=== PATIENT | male | born 1945 | race Caucasian/White ===

== ENCOUNTER → 2016-07-08 | Outpatient (CLI) | payer MEDICARE, BC, OTHER ==
[~2016-07-08] MED LIST: ACTIFED COLD &1 TA1 PO; AMARYL4 MG PO; ASPIRIN 32325 MG/TAB PO; CALCIUM CITRAT200 MG PO; CITRACAL + D CA1 TAB PO; CLARITIN10 MG PO; FLONASE NASAL S16 GM NS; LORTAB 7.5/5001 TAB PO; MELATONIN; METFORMIN HCL500 M1 PO; MIRAPEX 1MG; MIRAPEX0.5 MG PO; MULTIPLE VITAMI1 CAP PO; NIACIN500 M3 PO; PERCOCET 325 MG1 TA2 PO; PRILOSEC 20MG20 MG PO; PROTONIX 40MG T40 MG PO; VICTOZA6 MG/ML SC
[2016-07-08 09:00] LABS: BASO # 0.1 (0.0-0.2); BASO % 0.8 % (0.0-2.0); EOS # 0.3 (0.0-0.7); EOS % 5.1 % (0-4.0); GRAN # 4.1 (1.4-6.5); GRAN % 64.4 % (42.2-75.2); HEMATOCRIT 48.6 % (42.0-52.0); HEMOGLOBIN 16.9 g/dl (13.5-18.0); LYMPH # 1.4 (1.2-3.4); LYMPH % 21.9 % (20.0-51.0); MEAN CELL VOLUME 88 fl (80.0-100.0); MEAN CORPUSCULAR HEMOGLOBIN 31 pg (27.0-31.0); MEAN CORPUSCULAR HGB CONC 35 g/dl (33.0-37.0); MEAN PLATELET VOLUME 9.8 fl (7.4-10.4); MONO # 0.5 (0.1-0.6); MONO % 7.2 % (1.7-9.3); PLATELET COUNT 197 K/mm3 (130-400); RED BLOOD COUNT 5.53 M/mm3 (4.20-5.60); REDCELL DISTRIBUTION WIDTH-CV 12.8 % (11.5-14.5); WHITE BLOOD COUNT 6.3 K/mm3 (4.8-10.8)
[2016-07-08 09:22] LABS: ADJUSTED CALCIUM 10.1 mg/dL (8.4-10.2); ALBUMIN 4.3 gm/dL (3.5-5.0); BILIRUBIN,TOTAL 0.6 mg/dL (0.0-1.0); CALCIUM 10.3 mg/dL (8.4-10.2); CREATININE, serum 0.79 mg/dL (0.66-1.25); POTASSIUM 4.3 mmol/L (3.4-5.0)
[2016-07-08 09:43] LABS: THYROID STIMULATING HORMONE 0.743 uIU/mL (0.465-4.680)
== END ==
LOC: COL.LAB 08:28
PROVIDERS: Internal Medicine
DX: E11.9 Type 2 diabetes mellitus without complications (principal); E78.2 Mixed hyperlipidemia; E23.0 Hypopituitarism

== ENCOUNTER → 2016-08-01 | Outpatient (CLI) | payer MEDICARE, BC, OTHER | LOC: COL.RAD 07:30 | DX: M51.26 Other intervertebral disc displacement, lumbar region (principal); R26.81 Unsteadiness on feet ==

== ENCOUNTER → 2016-10-02 | Outpatient (CLI) | payer MEDICARE, BC, OTHER ==
[2016-10-02 14:34] LABS: BASO % 0.7 % (0.0-2.0); EOS # 0.3 (0.0-0.7); EOS % 4.4 % (0-4.0); GRAN # 4.1 (1.4-6.5); GRAN % 67.3 % (42.2-75.2); HEMOGLOBIN 15.9 g/dl (13.5-18.0); LYMPH # 1.2 (1.2-3.4); LYMPH % 19.1 % (20.0-51.0); MEAN CELL VOLUME 89 fl (80.0-100.0); MEAN CORPUSCULAR HEMOGLOBIN 31 pg (27.0-31.0); MEAN CORPUSCULAR HGB CONC 35 g/dl (33.0-37.0); MEAN PLATELET VOLUME 9.9 fl (7.4-10.4); MONO # 0.5 (0.1-0.6); PLATELET COUNT 192 K/mm3 (130-400); REDCELL DISTRIBUTION WIDTH-CV 12.6 % (11.5-14.5); WHITE BLOOD COUNT 6.1 K/mm3 (4.8-10.8)
[2016-10-02 14:44] LABS: ADJUSTED CALCIUM 10.4 mg/dL (8.4-10.2); BILIRUBIN,TOTAL 0.6 mg/dL (0.0-1.0); CALCIUM 10.4 mg/dL (8.4-10.2); CREATININE, serum 0.81 mg/dL (0.66-1.25); POTASSIUM 3.9 mmol/L (3.4-5.0); TOTAL PROTEIN 6.6 gm/dL (6.4-8.2)
== END ==
LOC: COL.LAB 13:42
PROVIDERS: Internal Medicine
DX: E11.9 Type 2 diabetes mellitus without complications (principal); E23.0 Hypopituitarism; I10 Essential (primary) hypertension; E78.5 Hyperlipidemia, unspecified

== ENCOUNTER → 2017-02-28 | Outpatient (REF) ==
[2017-02-28 16:53] LABS: THYROID STIMULATING HORMONE 0.789 uIU/mL (0.465-4.680)
== END ==
LOC: ZLAB.WCH 14:55
PROVIDERS: Internal Medicine
DX: Z01.89 Encounter for other specified special examinations (principal)

== ENCOUNTER → 2017-06-23 | Outpatient (REF) | LOC: ZLAB.WCH 18:06 | DX: Z01.89 Encounter for other specified special examinations (principal) ==

== ENCOUNTER 2017-07-09 12:51 | Day surgery (SDC) | payer MEDICARE, BC, OTHER ==
[~2017-07-09] VITALS: Ht 177.8 cm; Wt 100.5 kg
[~2017-07-09 12:51] MED LIST changes: -ACTIFED COLD &1 TA1 PO; +ACTIFED PO; +CLARITIN 1010 MG/TAB PO; -CLARITIN10 MG PO; -FLONASE NASAL S16 GM NS; +FLONASEALLERGY NS; -LORTAB 7.5/5001 TAB PO; +NORCO 325 MG-51 TAB PO
[2017-07-09] MEDS ORDERED: CANA100T PO (13:24)
[2017-07-09] MEDS ORDERED: BASAGLAR K100 UNIT/1 SQ (13:28)
[2017-07-09] MEDS ORDERED: CALTRATE-600 W600 MG PO (13:29)
[2017-07-09 13:53] VITALS: BP 127/72; PULSE 76; TEMP 97.2
[2017-07-09 17:53] VITALS: BP 139/76; PULSE 65; TEMP 98
== END 2017-07-09 19:28 | disposition home or self-care (01) ==
LOC: SDCO 12:51 → SURG 17:45 → SDCO 19:28
DX: N32.0 Bladder-neck obstruction (principal); Z97.8 Presence of other specified devices; Z96.643 Presence of artificial hip joint, bilateral; Z85.46 Personal history of malignant neoplasm of prostate; Z90.79 Acquired absence of other genital organ(s); Z87.891 Personal history of nicotine dependence; K21.9 Gastro-esophageal reflux disease without esophagitis; E11.40 Type 2 diabetes mellitus with diabetic neuropathy, unspecified; Z79.4 Long term (current) use of insulin; E29.1 Testicular hypofunction; G47.30 Sleep apnea, unspecified; Z79.82 Long term (current) use of aspirin; G25.81 Restless legs syndrome; I10 Essential (primary) hypertension; E78.5 Hyperlipidemia, unspecified; Z80.0 Family history of malignant neoplasm of digestive organs; Z68.31 Body mass index [BMI] 31.0-31.9, adult; J45.909 Unspecified asthma, uncomplicated
CPT/HCPCS: OP; J0690; J2270; J2405; J2704; J3010; J3301; J7030

== ENCOUNTER → 2017-09-23 | Outpatient (REF) ==
[~2017-09-23] MED LIST changes: +BASAGLAR K100 UNIT/1 SQ; +CALTRATE-600 W600 MG PO; +CANA100T PO
[2017-09-23 15:33] LABS: C-REACTIVE PROTEIN 0.8 mg/dL (0.0-0.9)
[2017-09-23 16:02] LABS: THYROID STIMULATING HORMONE 0.851 uIU/mL (0.465-4.680)
== END ==
LOC: ZLAB.WCH 15:03
PROVIDERS: Internal Medicine
DX: Z01.89 Encounter for other specified special examinations (principal)

== ENCOUNTER 2017-11-14 05:21 | Day surgery (SDC) | payer MEDICARE, BC, OTHER ==
[~2017-11-14] VITALS: Ht 177.8 cm; Wt 102.1 kg
[2017-11-14] MEDS ORDERED: CALCIUM CARBON650 M2 PO (05:38)
[2017-11-14] MEDS ORDERED: ACTIFED PO (05:40)
[2017-11-14] MEDS ORDERED: PERCOCET 325 MG1 TA2 PO (05:41)
[2017-11-14] MEDS ORDERED: MOBIC15 MG PO (05:41)
[2017-11-14] MEDS ORDERED: AMARYL4 MG PO (05:43)
[2017-11-14 05:46] VITALS: BP 129/81; PULSE 60; TEMP 98.1
[2017-11-14 08:25] VITALS: BP 132/70; PULSE 54; TEMP 97.3
[2017-11-14 08:40] VITALS: BP 125/76; PULSE 56
[2017-11-14 08:55] VITALS: BP 123/72; PULSE 59
[2017-11-14 09:10] VITALS: BP 124/68; PULSE 56
[2017-11-14 09:24] VITALS: BP 132/70; PULSE 57; TEMP 97.3
== END 2017-11-14 09:30 | disposition home or self-care (01) ==
LOC: SDCO 05:21
DX: N32.0 Bladder-neck obstruction (principal); J45.909 Unspecified asthma, uncomplicated; E78.5 Hyperlipidemia, unspecified; E11.40 Type 2 diabetes mellitus with diabetic neuropathy, unspecified; I10 Essential (primary) hypertension; G25.81 Restless legs syndrome; G47.33 Obstructive sleep apnea (adult) (pediatric); M19.90 Unspecified osteoarthritis, unspecified site; K21.9 Gastro-esophageal reflux disease without esophagitis; Z79.82 Long term (current) use of aspirin; Z79.4 Long term (current) use of insulin; Z90.79 Acquired absence of other genital organ(s); Z96.643 Presence of artificial hip joint, bilateral; Z87.891 Personal history of nicotine dependence; Z85.46 Personal history of malignant neoplasm of prostate; Z80.0 Family history of malignant neoplasm of digestive organs; Z83.3 Family history of diabetes mellitus; Z81.8 Family history of other mental and behavioral disorders
CPT/HCPCS: J0690; J2405; J2704; J3010; J3301; J7030

== ENCOUNTER → 2017-12-26 | Outpatient (REF) ==
[~2017-12-26] MED LIST changes: +CALCIUM CARBON650 M2 PO; +MOBIC15 MG PO
== END ==
LOC: ZLAB.WCH 09:46
DX: Z01.89 Encounter for other specified special examinations (principal)

== ENCOUNTER → 2019-01-13 | Outpatient (CLI) | payer MEDICARE, BC, OTHER | LOC: COL.RAD 06:53 | DX: M47.816 Spondylosis without myelopathy or radiculopathy, lumbar region (principal); M43.16 Spondylolisthesis, lumbar region; M48.061 Spinal stenosis, lumbar region without neurogenic claudication; M62.58 Muscle wasting and atrophy, not elsewhere classified, other site; M19.90 Unspecified osteoarthritis, unspecified site ==

== ENCOUNTER → 2019-02-02 | Outpatient (CLI) | payer MEDICARE, BC, OTHER | LOC: MHCPAIN 08:17 | DX: G89.29 Other chronic pain (principal); M47.817 Spondylosis without myelopathy or radiculopathy, lumbosacral region; M54.16 Radiculopathy, lumbar region; M53.3 Sacrococcygeal disorders, not elsewhere classified; M48.061 Spinal stenosis, lumbar region without neurogenic claudication | CPT/HCPCS: G0463 ==

== ENCOUNTER → 2021-04-03 | Outpatient (CLI) | payer MEDICARE, BC | LOC: MHCPAIN 10:11 | DX: M47.816 Spondylosis without myelopathy or radiculopathy, lumbar region (principal); M53.3 Sacrococcygeal disorders, not elsewhere classified; M54.50 Low back pain, unspecified; F17.210 Nicotine dependence, cigarettes, uncomplicated | CPT/HCPCS: G0463 ==

== ENCOUNTER 2021-08-14 18:57 | Emergency (ER) | payer MEDICARE, BC ==
[2021-08-14 19:14] VITALS: TEMP 98.7
[2021-08-14 19:37] LABS: BASO # 0.1 K/mm3 (0.0-0.2); BASO % 0.5 % (0.0-2.0); EOS # 0.4 K/mm3 (0.0-0.7); EOS % 3.8 % (0.0-4.0); GRAN # 7.8 K/mm3 (1.4-6.5); HEMATOCRIT 43.3 % (42.0-52.0); HEMOGLOBIN 15.3 g/dl (13.5-18.0); LYMPH # 1.6 K/mm3 (1.2-3.4); LYMPH % 15.1 % (20.0-51.0); MEAN CELL VOLUME 89 fl (80.0-100.0); MEAN CORPUSCULAR HEMOGLOBIN 32 pg (27-31); MEAN CORPUSCULAR HGB CONC 35 g/dl (33.0-37.0); MEAN PLATELET VOLUME 9.9 fl (7.4-10.4); MONO # 0.8 K/mm3 (0.1-0.6); MONO % 7.1 % (1.7-9.3); PLATELET COUNT 181 K/mm3 (130-400); RED BLOOD COUNT 4.86 M/mm3 (4.20-5.60); REDCELL DISTRIBUTION WIDTH-CV 12.7 % (11.5-14.5)
[2021-08-14 19:46] LABS: INR 1.1 (0.8-3.0)
[2021-08-14] MEDS ORDERED: KAPSPARGO SPRIN50 MG PO (19:51)
[2021-08-14] MEDS ORDERED: OZOBAX5 MG/5 ML PO (19:54)
[2021-08-14] MEDS ORDERED: LASIX 20MG TABL20 MG PO (19:54)
[2021-08-14] MEDS ORDERED: NAPROSYN500 MG PO (19:56)
[2021-08-14 19:57] LABS: ALANINE AMINOTRANSFERASE 17 U/L (0-55); ALBUMIN 3.6 gm/dL (3.4-4.8); ALKALINE PHOSPHATASE 75 U/L (40-150); ANION GAP 8 mmol/L (7-16); AST,SGOT 14 U/L (5-34); BILIRUBIN,TOTAL 0.6 mg/dL (0.2-1.2); BLOOD UREA NITROGEN 13 mg/dL (8-26); CALCIUM 9.4 mg/dL (8.4-10.2); CARBON DIOXIDE 24 mmol/L (23-31); CHLORIDE 108 mmol/L (98-107); CREATININE, serum 0.76 mg/dL (0.72-1.25); GLUCOSE 146 mg/dL (70-99); POTASSIUM 4.2 mmol/L (3.5-4.5); SODIUM 140 mmol/L (136-145); TOTAL PROTEIN 6.2 gm/dL (6.2-8.1)
[2021-08-14] MEDS ORDERED: VESICARE10 MG PO (19:57)
[2021-08-14] MEDS ORDERED: NORCO 325 MG-7.1 TAB PO (19:58)
[2021-08-14 20:25] LABS: PROLACTIN < 0.60 ng/mL (3.46-19.40)
[2021-08-14 22:58] VITALS: BP 149/75; PULSE 63
== END 2021-08-14 23:11 | disposition short-term general hospital (02) ==
LOC: COL.ER 18:57
PROVIDERS: Family Medicine
DX: I63.9 Cerebral infarction, unspecified (principal); F17.210 Nicotine dependence, cigarettes, uncomplicated; Z20.822 Contact with and (suspected) exposure to COVID-19
CPT/HCPCS: J3101; J7050; Q9967

== ENCOUNTER 2021-09-24 12:25 | Inpatient (IN) | payer MEDICARE, OTHER, BC ==
[~2021-09-24] VITALS: Ht 177.8 cm; Wt 90.3 kg
[~2021-09-24 12:25] MED LIST changes: +KAPSPARGO SPRIN50 MG PO; +LASIX 20MG TABL20 MG PO; +NAPROSYN500 MG PO; +NORCO 325 MG-7.1 TAB PO; +OZOBAX5 MG/5 ML PO; +VESICARE10 MG PO
[2021-09-24 13:12] LABS: BASO # 0.1 K/mm3 (0.0-0.2); BASO % 0.5 % (0.0-2.0); EOS # 0.1 K/mm3 (0.0-0.7); EOS % 1.5 % (0.0-4.0); GRAN # 7.6 K/mm3 (1.4-6.5); GRAN % 82.4 % (42.2-75.2); HEMATOCRIT 41.9 % (42.0-52.0); HEMOGLOBIN 14.9 g/dl (13.5-18.0); LYMPH # 0.8 K/mm3 (1.2-3.4); LYMPH % 9.1 % (20.0-51.0); MEAN CELL VOLUME 88 fl (80.0-100.0); MEAN CORPUSCULAR HEMOGLOBIN 31 pg (27-31); MEAN CORPUSCULAR HGB CONC 36 g/dl (33.0-37.0); MEAN PLATELET VOLUME 11.2 fl (7.4-10.4); MONO # 0.6 K/mm3 (0.1-0.6); MONO % 6.1 % (1.7-9.3); PLATELET COUNT 184 K/mm3 (130-400); RED BLOOD COUNT 4.79 M/mm3 (4.20-5.60); REDCELL DISTRIBUTION WIDTH-CV 11.9 % (11.5-14.5)
[2021-09-24 13:27] LABS: ALBUMIN 3.9 gm/dL (3.4-4.8); BILIRUBIN,TOTAL 0.9 mg/dL (0.2-1.2); CALCIUM 9.7 mg/dL (8.4-10.2); CREATININE, serum 2.3 mg/dL (0.72-1.25); POTASSIUM 4.6 mmol/L (3.5-4.5); TOTAL PROTEIN 6.4 gm/dL (6.2-8.1)
[2021-09-24 13:33] LABS: COLLECTION METHOD CLEAN CATCH
[2021-09-24 13:47] LABS: MUCOUS Present (NOT PRESENT); PH 5 (5-8); SQUAMOUS EPITHELIAL None Seen /hpf (0-10); URINE APPEARANCE Clear (CLEAR/HAZY); URINE BACTERIA None Seen /hpf (NONE SEEN); URINE BILIRUBIN Negative (NEGATIVE); URINE BLOOD 1+ (NEGATIVE); URINE COLOR Yellow (YELLOW); URINE GLUCOSE 3+ (NEGATIVE); URINE KETONE 1+ (NEGATIVE); URINE LEUKOCYTE ESTERASE Negative (NEGATIVE); URINE NITRATE Negative (NEGATIVE); URINE PROTEIN(semi-quant) Negative (NEGATIVE); URINE RBC 0-2 /hpf (0-2); URINE UROBILINOGEN Negative (NEGATIVE)
--- NOTE | 2021-09-24 16:45 | NUR ---
THE PATIENT WAS BROUGHT TO THE FLOOR BY BASSEM JOHNSON FROM ED. THE PATIENT TRANSFERRED FROM ED STRETCHER TO PT ROOM BED BY SHIFTING FROM ONE TO THE OTHER. ON ADMIT TO THE FLOOR, THE PATIENT'S BLOOD SUGAR WAS CHECKED, IT WAS 323. CONTACTED DR. ROBERSON WHO ORDERED 5 UNITS NovoLIN IV PUSH AND A RECHECK AT 1800. WAITING FOR THE INSULIN TO BE VERIFIED BY PHARMACY AT THIS TIME.
[2021-09-24 19:02] LABS: CALCIUM 9.4 mg/dL (8.4-10.2); CREATININE, serum 1.92 mg/dL (0.72-1.25); POTASSIUM 3.8 mmol/L (3.5-4.5)
[2021-09-24 20:40] LABS: PHOSPHOROUS 3.1 mg/dL (2.3-4.7); POTASSIUM 3.8 mmol/L (3.5-4.5)
[2021-09-24 21:10] VITALS: BP 122/64; PULSE 58; TEMP 98
[2021-09-24] MEDS ORDERED: TRULICITY1.5 MG/0.5 SQ (21:11)
[2021-09-24] MEDS ORDERED: ASPIRIN E.C. 8181 MG PO (21:11)
[2021-09-24] MEDS ORDERED: GLUCOPHAGE1000 MG PO (21:11)
[2021-09-24] MEDS ORDERED: NORVASC 5MG5 MG/TAB PO (21:13)
[2021-09-24] MEDS ORDERED: LIPITOR 40MG TA40 MG PO (21:13)
[2021-09-24] MEDS ORDERED: PLAVIX 75MG TAB75 MG PO (21:13)
--- NOTE | 2021-09-24 22:35 | NUR ---
At beginning of shift, reported that patient's lab work has come back better, and PA decided that patient did not need to be transferred to ICU, and that patiet could stay on medical floor instead. Assessment completed around 2114. Competed admission paperwork to best of patient's ability. Patient drowsy, but awakens easily. Denies pain and discomfort. Patient soft spoken. Able to answer orientation quesitons without difficulty, but has difficulty answering some questions about past. Peripheral IV to left hand with IV fluids running per orders. Denies SOB and dyspnea. LS CTA. HRR. Telemetry in place. BSAx4. Abdomen soft and non-tender. Discoloration to BLE, dry. Patient voices no questions, needs, or concerns at this time. In bed with call light within reach. Bed alarm on.
[2021-09-25] VITALS (7 sets, daily range): BP systolic 109–150; BP diastolic 73–90; PULSE 57–73; TEMP 97.4–98.3
[2021-09-25 06:13] LABS: BASO # 0.1 K/mm3 (0.0-0.2); BASO % 0.8 % (0.0-2.0); EOS # 0.4 K/mm3 (0.0-0.7); EOS % 5.3 % (0.0-4.0); GRAN # 5.2 K/mm3 (1.4-6.5); GRAN % 66.2 % (42.2-75.2); HEMATOCRIT 38.6 % (42.0-52.0); HEMOGLOBIN 13.5 g/dl (13.5-18.0); LYMPH # 1.5 K/mm3 (1.2-3.4); LYMPH % 18.7 % (20.0-51.0); MEAN CELL VOLUME 89 fl (80.0-100.0); MEAN CORPUSCULAR HEMOGLOBIN 31 pg (27-31); MEAN CORPUSCULAR HGB CONC 35 g/dl (33.0-37.0); MEAN PLATELET VOLUME 11.2 fl (7.4-10.4); MONO # 0.7 K/mm3 (0.1-0.6); MONO % 8.7 % (1.7-9.3); PLATELET COUNT 159 K/mm3 (130-400); RED BLOOD COUNT 4.36 M/mm3 (4.20-5.60); REDCELL DISTRIBUTION WIDTH-CV 11.9 % (11.5-14.5)
[2021-09-25 06:36] LABS: ALBUMIN 3.3 gm/dL (3.4-4.8); CALCIUM 9.3 mg/dL (8.4-10.2); CREATININE, serum 1.44 mg/dL (0.72-1.25); MAGNESIUM 1.9 mg/dL (1.6-2.6); PHOSPHOROUS 2.3 mg/dL (2.3-4.7); POTASSIUM 3.7 mmol/L (3.5-4.5)
[2021-09-25 11:09] LABS: CHOLESTEROL RISK RATIO 6.8
[2021-09-25 11:30] LABS: TSH w REFLEX 0.407 uIU/mL (0.350-4.940)
--- NOTE | 2021-09-25 12:52 | NUR ---
Initial visit; Patient thanked Certified Respiratory Therapist for looking in on him and offering God's blessings.
--- NOTE | 2021-09-25 16:49 | NUR ---
Music Teacher contacted patient's , Ritu to discuss discharge planning as patient is confused. Patient lives in [place] with his and sees Dr. Tineo for primary care. Patient obtains medications from [facility] pharmacy with no difficulties. Ritu advised before his stroke, patient did not use DME and was independent with ADLS. Ritu reported that patient has had great difficulty recently. Ritu advised she does not know if patient has DPOA-HC as patient handled all the paperwork. SW discussed recommendation for post acute rehab and options for SNF locally. Ritu would like referrals sent to the three local SNFs: [facility], [facility], and [facility]. SW then contacted patient's son, Rodriguez and reviewed referrals that were sent. Rodriguez advised he has been in contact with both [facility] and [facility]. Rodriguez advised he is looking into [place] for both patient and Ritu and that [facility] had a two bedroom available. Discharge Plan: SNF, pending referrals at [facility], [facility], and [facility]
--- NOTE | 2021-09-25 22:00 | NUR ---
Patient is resting in bed, alert and oriented. VSS. Telemetry in place NSR. Assessment completed. Medications provided. No other needs at this time. Call light within reach.
[2021-09-26 04:40] VITALS: BP 104/71; PULSE 70; TEMP 97.7
--- NOTE | 2021-09-26 06:12 | NUR ---
Patient has been resting most of the night. Continue receiving fluids. VSS. Report will be given to day RN.
[2021-09-26 06:42] LABS: BASO % 0.3 % (0.0-2.0); EOS # 0.3 K/mm3 (0.0-0.7); EOS % 5.7 % (0.0-4.0); GRAN # 3.8 K/mm3 (1.4-6.5); GRAN % 62.8 % (42.2-75.2); HEMOGLOBIN 12.9 g/dl (13.5-18.0); LYMPH # 1.3 K/mm3 (1.2-3.4); LYMPH % 21.2 % (20.0-51.0); MEAN CELL VOLUME 89 fl (80.0-100.0); MEAN CORPUSCULAR HEMOGLOBIN 31 pg (27-31); MEAN CORPUSCULAR HGB CONC 35 g/dl (33.0-37.0); MEAN PLATELET VOLUME 11.5 fl (7.4-10.4); MONO # 0.6 K/mm3 (0.1-0.6); MONO % 9.3 % (1.7-9.3); PLATELET COUNT 143 K/mm3 (130-400); RED BLOOD COUNT 4.11 M/mm3 (4.20-5.60)
[2021-09-26 06:48] LABS: HEMATOCRIT 36.5 % (42.0-52.0)
[2021-09-26 07:10] LABS: CALCIUM 8.6 mg/dL (8.4-10.2); MAGNESIUM 1.7 mg/dL (1.6-2.6); PHOSPHOROUS 2.8 mg/dL (2.3-4.7)
[2021-09-26 07:11] LABS: POTASSIUM 2.8 mmol/L (3.5-4.5)
[2021-09-26 07:49] VITALS: BP 119/69; PULSE 63; TEMP 97.8
--- NOTE | 2021-09-26 09:48 | NUR ---
ASSOCIATE PROFESSOR OF AUTOMATION NURSE SHLOMO AT BEDSIDE ASKING QUESTIONS OF THE PATIENT. THE PATIENT IS UNABLE TO ANSWER MANY QUESTIONS. HE IS INTERMITTENTLY ORIENTED, BUT IS ALERT MOST OF THE TIME. NO OTHER CONCERNS. PLANS FOR ARSH AND LOOP PLACEMENT LATER THIS MORNING.
--- NOTE | 2021-09-26 11:00 | NUR ---
THE PATIENT IS SITTING IN THE RECLINER AT THIS TIME. HOWEVER, HAS REQUESTED TO RETURN TO BED. MOVED PATIENT INTO BED, AND IS WAITING FOR HIS ARSH/LOOP RECORDER PLACEMENT AROUND 1130. NO OTHER CONCERNS AT THIS TIME.
[2021-09-26 11:33] VITALS: BP 120/73; PULSE 66; TEMP 97.7
--- NOTE | 2021-09-26 14:58 | NUR ---
Social Work student faxed clinical updates to Davin at [facility].
--- NOTE | 2021-09-26 15:05 | NUR ---
Jozef with [facility] notified ESTHER Carreno of acceptance for tomorrow. Contacted [facility] and spoke with Pratibha who confirms of acceptace to their facility tomorrow.
[2021-09-26 16:10] VITALS: BP 123/79; PULSE 69; TEMP 98
[2021-09-26 20:17] VITALS: BP 113/70; PULSE 69; TEMP 97.7
--- NOTE | 2021-09-26 21:30 | NUR ---
Patient is resting in bed, alert and partially oriented. Denies pain. Telemetry in place, NSR. Receiving 1/2 NS AT 50 ml/hr. Assessment completed, medications provided. No other needs at this time. Call light within reach, bed alarm on.
[2021-09-26 23:54] VITALS: BP 110/62; PULSE 70; TEMP 97.9
[2021-09-27 04:29] VITALS: BP 118/71; PULSE 68; TEMP 98.4
--- NOTE | 2021-09-27 06:08 | NUR ---
Patient has had a calm night. All needs met. Continue receiving 1/2 NS AT 50ml/hr. Report will be given to day RN.
[2021-09-27 06:39] LABS: BASO % 0.6 % (0.0-2.0); EOS # 0.2 K/mm3 (0.0-0.7); EOS % 4.5 % (0.0-4.0); GRAN # 3.3 K/mm3 (1.4-6.5); GRAN % 65.2 % (42.2-75.2); HEMOGLOBIN 12.5 g/dl (13.5-18.0); LYMPH % 18.8 % (20.0-51.0); MEAN CELL VOLUME 86 fl (80.0-100.0); MEAN CORPUSCULAR HEMOGLOBIN 31 pg (27-31); MEAN CORPUSCULAR HGB CONC 36 g/dl (33.0-37.0); MEAN PLATELET VOLUME 11.8 fl (7.4-10.4); MONO # 0.5 K/mm3 (0.1-0.6); MONO % 10.5 % (1.7-9.3); PLATELET COUNT 124 K/mm3 (130-400); RED BLOOD COUNT 4.05 M/mm3 (4.20-5.60); REDCELL DISTRIBUTION WIDTH-CV 11.9 % (11.5-14.5)
[2021-09-27 06:58] LABS: ALBUMIN 2.9 gm/dL (3.4-4.8); CALCIUM 8.4 mg/dL (8.4-10.2); CREATININE, serum 1.09 mg/dL (0.72-1.25); MAGNESIUM 1.7 mg/dL (1.6-2.6); PHOSPHOROUS 1.8 mg/dL (2.3-4.7); POTASSIUM 3.5 mmol/L (3.5-4.5)
[2021-09-27 07:33] VITALS: BP 110/67; PULSE 64; TEMP 97.9
--- NOTE | 2021-09-27 10:47 | NUR ---
Scheduled medications given. Shift assessment performed. VSS. Patient alert but only partially oriented. PICC line in place, flushes with good blood return, no signs of complications. Aphasia noted. Patient denies any pain, discomfort, SOA, or further needs at this time. Call light in reach. Fall percautions in place.
--- NOTE | 2021-09-27 10:59 | NUR ---
Order for Magensium Sulfate replacement placed, per additional nursing order. K+ replacement in progress per protocol.
[2021-09-27] MEDS ORDERED: LIPITOR 40MG TA40 MG PO (11:23)
[2021-09-27] MEDS ORDERED: PLAVIX 75MG TAB75 MG PO (11:23)
[2021-09-27] MEDS ORDERED: ASPIRIN E.C. 8181 MG PO (11:24)
[2021-09-27] MEDS ORDERED: GLUCOPHAGE1000 MG PO (11:27)
[2021-09-27] MEDS ORDERED: TRULICITY1.5 MG/0.5 SQ (11:27)
[2021-09-27] MEDS ORDERED: AMARYL4 MG PO (11:27)
[2021-09-27] MEDS ORDERED: NOVOLOG 100U100 U/M1 SQ (11:27)
[2021-09-27 11:28] VITALS: BP 125/76; PULSE 68; TEMP 97.7
--- NOTE | 2021-09-27 12:50 | NUR ---
Jessica notified by Davin at [facility] that they are able to accept this patient and transportation can be here around 1430 to pick the patient up. Patients clinical updates and discharge orders faxed to Davin. Patients RN and PA notified. Gilbert andrea requested. Attempt made to contact the patients Ritu gooden on her cell phone and home phone. Phone call made to the patients son Rodriguez and message left with the above information. Discharge plan: [facility] SNF @ 1430
[2021-09-27 13:40] VITALS: BP 125/76; PULSE 68; TEMP 97.7
--- NOTE | 2021-09-27 15:09 | NUR ---
Patient deemed fit for discharge. Report called to [facility]. VSS. Patient Alert and partially oriented.
--- NOTE | 2021-09-27 15:19 | NUR ---
Report given to at [facility]
== END 2021-09-27 14:45 | DRG 981 ==
LOC: COL.ER 12:25 → MEDICAL 15:03
PROVIDERS: Personal Emergency Response Attendant; Physician Assistant; Student in an Organized Health Care Education/Training Program; ADMIT Internal Medicine
PROC: 02HV33Z Insertion of Infusion Device into Superior Vena Cava, Percutaneous Approach (ICD-10-PCS; 2021-09-25)
PROC: 0JH632Z Insertion of Monitoring Device into Chest Subcutaneous Tissue and Fascia, Percutaneous Approach (ICD-10-PCS; principal; 2021-09-26)
PROC: B24BZZ4 Ultrasonography of Heart with Aorta, Transesophageal (ICD-10-PCS; 2021-09-26)
DX: E11.10 Type 2 diabetes mellitus with ketoacidosis without coma (principal); I63.9 Cerebral infarction, unspecified; N17.9 Acute kidney failure, unspecified; E87.2 Acidosis; E87.0 Hyperosmolality and hypernatremia; R47.01 Aphasia; I10 Essential (primary) hypertension; E78.00 Pure hypercholesterolemia, unspecified; J45.909 Unspecified asthma, uncomplicated; I44.7 Left bundle-branch block, unspecified; E86.0 Dehydration; K21.9 Gastro-esophageal reflux disease without esophagitis; G47.33 Obstructive sleep apnea (adult) (pediatric); E11.40 Type 2 diabetes mellitus with diabetic neuropathy, unspecified; E11.649 Type 2 diabetes mellitus with hypoglycemia without coma; E87.6 Hypokalemia; R29.810 Facial weakness; Z20.822 Contact with and (suspected) exposure to COVID-19; Z96.643 Presence of artificial hip joint, bilateral; Z86.73 Personal history of transient ischemic attack (TIA), and cerebral infarction without residual deficits; Z87.891 Personal history of nicotine dependence; Z79.4 Long term (current) use of insulin; Z85.46 Personal history of malignant neoplasm of prostate
CPT/HCPCS: 99223-AI; 99233-AI; 99239; A9575; C1751; C1764; J0696; J1644; J1815; J2704; J3475; J3480; J7030